=== PATIENT | female | born 1985 | race Caucasian/White ===

== ENCOUNTER 2021-04-29 18:38 | Emergency (ER) | payer OTHER ==
[2021-04-29] MEDS ORDERED: CEPHALEXIN500 MG PO (20:46)
[2021-04-29] MEDS ORDERED: ZOFRAN4 M1 PO (20:46)
[2021-04-29] MEDS ORDERED: NORCO 5-325 TA1 EACH PO (20:46)
== END 2021-04-29 21:03 | disposition home or self-care (01) ==
LOC: FER 18:38
DX: S92.311A Displaced fracture of first metatarsal bone, right foot, initial encounter for closed fracture (principal); S92.321A Displaced fracture of second metatarsal bone, right foot, initial encounter for closed fracture; I10 Essential (primary) hypertension; Z88.0 Allergy status to penicillin; Z88.6 Allergy status to analgesic agent; Z88.5 Allergy status to narcotic agent; W23.1XXA Caught, crushed, jammed, or pinched between stationary objects, initial encounter; Y92.009 Unspecified place in unspecified non-institutional (private) residence as the place of occurrence of the external cause
CPT/HCPCS: 73630; J1170